=== PATIENT | male | born 1970 | race Caucasian/White ===

== ENCOUNTER → 2018-04-19 | Day surgery (SDC) | payer OTHER | END | disposition home or self-care (01) | LOC: FIMAGING 12:10 | PROVIDERS: ATTEND Radiology Diagnostic Radiology | DX: M19.90 Unspecified osteoarthritis, unspecified site (principal); B99.9 Unspecified infectious disease | CPT/HCPCS: 36573; 77001; C1751 ==

== ENCOUNTER → 2018-08-01 | Outpatient (CLI) | payer OTHER | LOC: FIMAGING 12:40 ==